=== PATIENT | female | born 1995 | race Caucasian/White ===

== ENCOUNTER 2020-12-20 19:55 | Emergency (ER) | payer OTHER, SELFPAY ==
[2020-12-20 20:54] VITALS: BP 138/87; PULSE 98; RESP 18; TEMP 36.7; O2SAT 100
[2020-12-20] MEDS: LIDOCAINE HCL 1% LOCAL INJ 20 ML VIAL (21:26)
--- NOTE | 2020-12-20 22:02 | ED.GENADULT ---
HPI - General Adult General Chief complaint: Extremity Injury, Upper Stated complaint: Stabbed hand Time Seen by Provider: 12/20/20 20:51 Source: patient, family and RN notes reviewed Mode of arrival: ambulatory Limitations: no limitations History of Present Illness HPI narrative: Patient is a 25-year-old female who presents to emergency department for evaluation of laceration to the left palm patient stabbed herself trying to separate to hamburger patties patient notes mild aching pain worse with activity and movement denies radicular symptoms or paresthesias or other complaints presents in no distress Related Data Allergies Allergy/AdvReac Type Severity Reaction Status Date / Time No Known Allergies Allergy Unknown Unverified 03/13/17 09:24 Review of Systems Review of Systems: All systems reviewed & are unremarkable except as noted in HPI and below PMFSH Surgical History Surgical History (Updated 12/20/20 @ 22:02 by Gilberto Boyle PA-C) Previous section Social History Social History (Updated 12/20/20 @ 22:03 by Gilberto Boyle PA-C) Smoking status: Never smoker Exam Narrative: Exam Narrative: GENERAL: Well-appearing, well-nourished, and in no acute distress. HEAD: Normocephalic, atraumatic. EYES: PERRLA and EOMI. ENT: Nares clear, no rhinorrhea or epistaxis. Mucous membranes moist. EXTREMITIES: Normal range of motion. No edema. SKIN: Warm, dry, no rash. 2 cm linear laceration palmar aspect left hand NEURO: No focal deficits. Alert and oriented x3. Neurovascularly intact PSYCH: Normal mood and affect. Course Course Emergency Course: Wound closed in the emergency department will be discharged home with outpatient follow-up Vital Signs Vital signs: Vital Signs Temperature 98.0 F 12/20/20 20:54 Pulse Rate 98 12/20/20 20:54 Respiratory Rate 18 12/20/20 20:54 Blood Pressure 138/87 12/20/20 20:54 Pulse Oximetry 100 12/20/20 20:54 Temperature 98.0 F 12/20/20 20:54 Pulse Rate 98 12/20/20 20:54 Respiratory Rate 18 12/20/20 20:54 Blood Pressure 138/87 12/20/20 20:54 Pulse Oximetry 100 12/20/20 20:54 Procedures Laceration Laceration 1: Date: 12/20/20 Time: 22:03 Site: upper extremity Size (cm): 2 Description: linear Depth: simple, single layer Local Anesthetic: lidocaine 1% Pre-repair: wound explored, irrigated and irrigated extensively ====== Skin Level ====== Skin layer closed with: nylon Size (cm): 5-0 Number of sutures: 2 Technique: simple, interrupted ====== Subcutaneous Layer ====== ====== Muscle Layer ====== ====== Tendon Layer ====== Dressing: Wound well approximated will be discharged home with outpatient follow-up antibiotic ointment nonadhesive 4 x 4 and Coban placed post procedure Medical Decision Making MDM Narrative Medical decision making narrative: Patients injury or pain is consistent with musculoskeletal etiology. No signs of neurological or vascular compromise on exam. Compartments and tisues are soft without signs of compartment syndrome. Pain is felt appropriate for further evaluation on an outpatient basis. Vital Signs Vital Signs: Vital Signs Temperature 98.0 F 12/20/20 20:54 Pulse Rate 98 12/20/20 20:54 Respiratory Rate 18 12/20/20 20:54 Blood Pressure 138/87 12/20/20 20:54 Pulse Oximetry 100 12/20/20 20:54 Temperature 98.0 F 12/20/20 20:54 Pulse Rate 98 12/20/20 20:54 Respiratory Rate 18 12/20/20 20:54 Blood Pressure 138/87 12/20/20 20:54 Pulse Oximetry 100 12/20/20 20:54 Discharge Plan Discharge Clinical Impression: Hand laceration Patient Disposition: Home, Self-Care Condition: Stable Instructions: Antibiotic Form, Laceration (ED) Additional Instructions: Keep wound clean and dry. Do not soak, take baths, or swim until wound is completely healed. If any s
== END 2020-12-20 22:40 | disposition home or self-care (01) ==
PROVIDERS: Emergency Provider Emergency Medicine; PCP Family Medicine Sports Medicine
DX: S61.412A Laceration without foreign body of left hand, initial encounter (principal); W26.9XXA Contact with unspecified sharp object(s), initial encounter; Y93.G1 Activity, food preparation and clean up
CPT/HCPCS: 12001; 99282